=== PATIENT | female | born 1950 ===

== ENCOUNTER 2021-02-26 17:33 | Emergency (ER) | payer MEDICARE ==
[2021-02-26] MEDS ORDERED: HYDROcodone/Acetaminophen 10/325 mg Tablet ONE (19:32)
== END 2021-02-26 21:29 | disposition home or self-care (01) ==
LOC: ERS 17:33
DX: S13.9XXA Sprain of joints and ligaments of unspecified parts of neck, initial encounter (principal); S00.03XA Contusion of scalp, initial encounter; E11.9 Type 2 diabetes mellitus without complications; I48.91 Unspecified atrial fibrillation; Z79.899 Other long term (current) drug therapy; W19.XXXA Unspecified fall, initial encounter
CPT/HCPCS: 70450; 72125; 93005